=== PATIENT | female | born 1950 | race Caucasian/White ===

== ENCOUNTER 2021-01-14 07:42 | Day surgery (SDC) | payer OTHER ==
[2021-01-09 09:47] VITALS: BMI 25.0
[2021-01-14] MEDS ORDERED: PROPOFOL 20 ML ONE ×3 (08:44→10:47)
[2021-01-14] MEDS ORDERED: MIDAZOLAM HCL 2 MG/2 ML SINGLE DOSE VIAL ONE ×2 (08:44)
[2021-01-14] MEDS ORDERED: LIDOCAINE 1%/EPI 1:100000 (20 ML MULTI DOSE VIAL) ONE (09:13)
[2021-01-14] MEDS ORDERED: ERYTHROMYCIN 0.5% OPHTHALMIC OINTMENT 3.5 GM TUBE ONE (09:13)
[2021-01-14] MEDS ORDERED: TETRACAINE 0.5% OPHTH SOLN 2 ML BOTTLE ONE (09:13)
[2021-01-14] MEDS ORDERED: POVIDONE-IODINE 5% OPHTHALMIC PREP 30 ML SOLUTION ONE (09:13)
[2021-01-14] MEDS ORDERED: ceFAZolin SODIUM 1 GM VIAL ONE (10:04)
[2021-01-14] MEDS ORDERED: ONDANSETRON 4 MG/2 ML VIAL ONE (10:31)
[2021-01-14] MEDS ORDERED: DEXAMETHASONE SOD PHOSPHATE 4 MG/1 ML VIAL ONE (10:31)
[2021-01-14] MEDS ORDERED: oxyCODONE HCL 5 MG TABLET PO PRN (13:10)
[2021-01-14] MEDS ORDERED: ONDANSETRON 4 MG/2 ML VIAL IVPUSH PRN (13:10)
[2021-01-14] MEDS ORDERED: LACTATED RINGERS SOLUTION 1,000 ML IV SCH (13:15)
[2021-01-14 14:07] VITALS: PULSE 78; TEMP 97.9
[2021-01-14 16:47] VITALS: BP 135/65
== END 2021-01-14 14:45 | disposition home or self-care (01) ==
LOC: FASU 07:42
PROVIDERS: ATTEND Ophthalmology
CPT/HCPCS: 94760